=== PATIENT | male | born 1945 | race Caucasian/White ===

== ENCOUNTER → 2016-11-02 | Outpatient (CLI) | payer MEDICARE, OTHER ==
--- NOTE | 2016-11-02 11:54 | US ---
EXAMINATION TYPE: US venous doppler duplex LE LT DATE OF EXAM: 11/02/2016 11:49 AM COMPARISON: NONE CLINICAL HISTORY: R22.41 Localized Superficial Swelling. SIDE PERFORMED: Left TECHNIQUE: The lower extremity deep venous system is examined utilizing real time linear array sonog warren with graded compression, doppler sonography and color-flow sonography. VESSELS IMAGED: External Iliac Vein (EIV) Common Femoral Vein Deep Femoral Vein Greater Saphenous Vein * Femoral Vein Popliteal Vein Small Saphenous Vein * Proximal Calf Veins (* superficial vessels) Left Leg: Negative for DVT IMPRESSION: 1. Left lower extremity negative for deep venous thrombosis by ultrasound
--- NOTE | 2016-11-02 14:13 | XR ---
Left knee HISTORY: Pain, erythema, swelling 3 views of the left knee Bone mineralization, joint spaces and alignment are remarkable for some mild joint space in the media l compartment, patellofemoral joint with marginal spurring. Soft tissue swelling extensive. There is thickening of the patellar tendon region. No definite joint effusion. IMPRESSION: Correlate for cellulitis, infection of patellar tendon. A Yellow message has been communicated to Jay Jay Benito III, MD via the GREE system on 11/02/2016 2:10 PM, Message ID [id number].
== END | disposition home or self-care (01) ==
LOC: RADUSWWP 11:08
PROVIDERS: ATTEND Family Medicine
DX: L03.116 Cellulitis of left lower limb (principal); M65.162 Other infective (teno)synovitis, left knee; S89.92XA Unspecified injury of left lower leg, initial encounter

== ENCOUNTER 2018-02-19 17:03 | Emergency (ER) | payer OTHER, MEDICARE ==
[2018-02-19] MEDS ORDERED: SODIUM CHLORIDE 0.9% 500 ML 500 ML IV STA (17:25)
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
[2018-02-19 18:36] LABS: Partial Thromboplastin Time 23.9 sec (22.0-30.0); Prothrombin Time 9.9 sec (9.0-12.0)
[2018-02-19 18:38] LABS: ALT 23 U/L (21-72); AST 42 U/L (17-59); Albumin 3.9 g/dL (3.5-5.0); Alcohol <10 mg/dL; Alkaline Phosphatase 76 U/L (38-126); Anion Gap 7 mmol/L; Basophils % (A) 1 %; Blood Urea Nitrogen 20 mg/dL (9-20); Calcium 9.2 mg/dL (8.4-10.2); Carbon Dioxide 26 mmol/L (22-30); Chloride 107 mmol/L (98-107); Eosinophils # (A) 0.3 k/uL (0-0.7); Eosinophils % (A) 4 %; Glucose 99 mg/dL (74-99); HCT 43.5 % (39.0-53.0); HGB 14.2 gm/dL (13.0-17.5); Lipase 130 U/L (23-300); Lymphocytes # (A) 0.8 k/uL (1.0-4.8); Lymphocytes % (A) 13 %; MCH 31.6 pg (25.0-35.0); MCHC 32.7 g/dL (31.0-37.0); MCV 96.7 fL (80.0-100.0); Mean Platelet Volume 6.9; Monocytes # (A) 0.6 k/uL (0-1.0); Monocytes % (A) 11 %; Neutrophils % (A) 69 %; Platelet Count 203 k/uL (150-450); Potassium 4.9 mmol/L (3.5-5.1); RDW 13.6 % (11.5-15.5); Sodium 140 mmol/L (137-145); Total Bilirubin 0.6 mg/dL (0.2-1.3); Total Protein 6.5 g/dL (6.3-8.2); WBC 5.7 k/uL (3.8-10.6)
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
[2018-02-19 19:34] LABS: Appearance,Urine Clear (Clear); Bilirubin,Urine Negative (Negative); Blood,Urine Negative (Negative); Color,Urine Light Yellow; Glucose,Urine (UA) Negative (Negative); Ketones,Urine Negative (Negative); Leukocyte Esterase,Urine Negative (Negative); Nitrite,Urine Negative (Negative); Protein,Urine Negative (Negative); Specific Gravity,Urine 1.012 (1.001-1.035); Urobilinogen,Urine <2.0 mg/dL (<2.0)
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
[2018-02-19 20:32] VITALS: BP 159/75; PULSE 68; RESP 17; TEMP 98.9
== END 2018-02-19 20:35 | disposition other institution (70) ==
LOC: EC 17:03
DX: R10.13 Epigastric pain (principal); G23.8 Other specified degenerative diseases of basal ganglia; N28.1 Cyst of kidney, acquired; M19.90 Unspecified osteoarthritis, unspecified site; Z91.030 Bee allergy status; V43.62XA Car passenger injured in collision with other type car in traffic accident, initial encounter
CPT/HCPCS: 36415; 70450; 71045; 71250; 72125; 72170; 74176; 80053; 80320; 81003; 83690; 84484; 85025; 85610; 85730; 86850; 86900; 86901; 96360; 99285

== ENCOUNTER → 2018-03-02 | Outpatient (CLI) | payer MEDICARE, OTHER ==
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
== END | disposition home or self-care (01) ==
LOC: SLEEP 10:49
PROVIDERS: ATTEND Internal Medicine
DX: G47.33 Obstructive sleep apnea (adult) (pediatric) (principal); G47.31 Primary central sleep apnea; S19.89XA Other specified injuries of other specified part of neck, initial encounter; M79.89 Other specified soft tissue disorders; E66.9 Obesity, unspecified; K21.9 Gastro-esophageal reflux disease without esophagitis; E61.1 Iron deficiency; E78.5 Hyperlipidemia, unspecified; Z99.89 Dependence on other enabling machines and devices; Z79.899 Other long term (current) drug therapy; Z79.82 Long term (current) use of aspirin; Z87.828 Personal history of other (healed) physical injury and trauma; Z90.5 Acquired absence of kidney; Z52.4 Kidney donor; Z68.34 Body mass index [BMI] 34.0-34.9, adult

== ENCOUNTER → 2018-04-19 | Outpatient (CLI) | payer MEDICARE, OTHER ==
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
== END | disposition home or self-care (01) ==
LOC: SLEEP 11:22
PROVIDERS: ATTEND Internal Medicine
DX: G47.33 Obstructive sleep apnea (adult) (pediatric) (principal); G47.31 Primary central sleep apnea; E66.9 Obesity, unspecified; E78.5 Hyperlipidemia, unspecified; K21.9 Gastro-esophageal reflux disease without esophagitis; Z87.39 Personal history of other diseases of the musculoskeletal system and connective tissue; Z52.4 Kidney donor; Z99.11 Dependence on respirator [ventilator] status; Z79.899 Other long term (current) drug therapy

== ENCOUNTER → 2018-06-01 | Outpatient (CLI) | payer MEDICARE, OTHER ==
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
== END ==
LOC: SLEEP 14:56
PROVIDERS: ATTEND Internal Medicine
DX: Z53.9 Procedure and treatment not carried out, unspecified reason (principal)

== ENCOUNTER 2021-04-12 15:30 | Inpatient (IN) | payer MEDICARE, OTHER ==
--- NOTE | 2021-04-12 16:07 | ED ---
General Adult HPI - General Chief complaint: Fall Stated complaint: fall, hip injury Time Seen by Provider: 04/12/21 15:58 Source: patient, EMS, RN notes reviewed, old records reviewed Mode of arrival: EMS Limitations: no limitations - History of Present Illness Initial comments: 75-year-old well-appearing male down and presents to the emergency room via EMS with complaints of slipping in the driveway on ice landing on his right hip. Patient states he had sharp stabbing pain and is unable to the right leg. He denies any other injuries. He denies any head injury or loss of consciousness. He does have a history of hypertension. He states the pain was 8 out of 10 over pain medication was given by EMS and states the pain is resolved. -: hour(s) (2) Location: right, lower extremity (hip) Severity scale (1-10): 0 Quality: sharp Consistency: now resolved (after pain meds) Improves with: immobilization Worsens with: movement Associated Symptoms: denies other symptoms Treatments Prior to Arrival: other (iv pain meds) - Related Data Allergies Allergy/AdvReac Type Severity Reaction Status Date / Time bee venom protein (honey bee) Allergy Anaphylaxis Verified 04/12/21 15:48 Review of Systems ROS Statement: Those systems with pertinent positive or pertinent negative responses have been documented in the HPI. ROS Other: All systems not noted in ROS Statement are negative. Past Medical History Past Medical History: Hypertension History of Any Multi-Drug Resistant Organisms: None Reported Additional Past Surgical History / Comment(s): kidney donor - only one kidney Past Psychological History: Depression Smoking Status: Never smoker Past Alcohol Use History: Occasional Past Drug Use History: None Reported General Exam Limitations: no limitations General appearance: alert, in no apparent distress Head exam: Present: atraumatic, normocephalic, normal inspection Eye exam: Present: normal appearance, EOMI. Absent: scleral icterus, conjunctival injection, periorbital swelling, periorbital tenderness ENT exam: Present: normal exam, normal oropharynx, mucous membranes moist Neck exam: Present: normal inspection, full ROM. Absent: tenderness, meningismus, lymphadenopathy Respiratory exam: Present: normal lung sounds bilaterally. Absent: respiratory distress, wheezes, rales, rhonchi, stridor Cardiovascular Exam: Present: regular rate, normal rhythm, normal heart sounds. Absent: systolic murmur, diastolic murmur, rubs, gallop, clicks, JVD GI/Abdominal exam: Present: soft, normal bowel sounds. Absent: distended, tenderness, guarding, rebound, rigid Right Hip exam: Present: tenderness, shortening, pelvic stability. Absent: full ROM Upper Leg exam: Absent: tenderness Knee exam: Absent: tenderness Lower Leg exam: Absent: tenderness Ankle exam: Present: full ROM. Absent: tenderness Foot/Toe exam: Present: full ROM. Absent: tenderness Neurovascular tendon exam: Absent: no vascular compromise, pulse deficit, extremity cold to touch, foot drop Neurological exam: Present: alert, oriented X3 Psychiatric exam: Present: normal affect, normal mood Skin exam: Present: warm, dry, intact, normal color. Absent: rash, cyanosis, diaphoretic Course Vital Signs 04/12/21 15:39 Temperature 98.5 F Pulse Rate 67 Respiratory 18 Rate Blood Pressure 147/68 O2 Sat by Pulse 96 Oximetry Medical Decision Making - Medical Decision Making 75-year-old male alert and oriented 4, presents to the emergency room after slip and fall in his driveway landing on his right hip today. Patient states t hat he has difficulty with movement. No head injury. He did not lose consciousness. Labs are unremarkable. X-ray shows a acute intra-trochanteric fracture of the right femur. There is no dislocation noted. Pelvic ring is intact. No active cardiopulmonary disease on x-ray. Patient is neurovascularly intact. He has good sensation. Patient states he has no pain at this time, he was given pain m edication by EMS. Patient will be admitted to orthopedics for femur fracture. Case discussed with Dr. Howard - Lab Data Result diagrams: 04/12/21 16:09 04/12/21 16:09 Lab Results 04/12/21 04/12/21 04/12/21 Range/Units 16:09 16:09 16:09 WBC 5.8 (3.8-10.6) k/uL RBC 4.28 L (4.30-5.90) m/uL Hgb 13.8 (13.0-17.5) gm/dL Hct 41.4 (39.0-53.0) % MCV 96.7 (80.0-100.0) fL MCH 32.3 (25.0-35.0) pg MCHC 33.4 (31.0-37.0) g/dL RDW 13.2 (11.5-15.5) % Plt Count 184 (150-450) k/uL MPV 7.0 Neutrophils % 74 % Lymphocytes % 12 % Monocytes % 7 % Eosinophils % 4 % Basophils % 1 % Neutrophils # 4.3 (1.3-7.7) k/uL Lymphocytes # 0.7 L (1.0-4.8) k/uL Monocytes # 0.4 (0-1.0) k/uL Eosinophils # 0.3 (0-0.7) k/uL Basophils # 0.0 (0-0.2) k/uL PT 9.9 (9.0-12.0) sec INR 0.9 (<1.2) APTT 18.4 L (22.0-30.0) sec Sodium 138 (137-145) mmol/L Potassium 4.7 (3.5-5.1) mmol/L Chloride 109 H (98-107) mmol/L Carbon Dioxide 21 L (22-30) mmol/L Anion Gap 8 mmol/L BUN 24 H (9-20) mg/dL Creatinine 1.05 (0.66-1.25) mg/dL Est GFR (CKD-EPI)AfAm 80 (>60 ml/min/1.73 sqM) Est GFR (CKD-EPI)NonAf 70 (>60 ml/min/1.73 sqM) Glucose 101 H (74-99) mg/dL Calcium 8.7 (8.4-10.2) mg/dL Total Bilirubin 0.7 (0.2-1.3) mg/dL AST 34 (17-59) U/L ALT 14 (4-49) U/L Alkaline Phosphatase 90 (38-126) U/L Total Protein 6.4 (6.3-8.2) g/dL Albumin 3.7 (3.5-5.0) g/dL Disposition Clinical Impression: Fall, Fracture of right hip Disposition: ADMITTED IP TO THIS HOSP Is patient prescribed a controlled substance at d/c from ED?: No Referrals: Jay Jay Benito III, MD [Primary Care Provider] - 1-2 days Decision Date: 04/12/21 Decision Time: 17:01
[2021-04-12 16:18] LABS: Basophils % (A) 1 %; Eosinophils # (A) 0.3 k/uL (0-0.7); Eosinophils % (A) 4 %; HCT 41.4 % (39.0-53.0); HGB 13.8 gm/dL (13.0-17.5); Lymphocytes # (A) 0.7 k/uL (1.0-4.8); Lymphocytes % (A) 12 %; MCH 32.3 pg (25.0-35.0); MCHC 33.4 g/dL (31.0-37.0); MCV 96.7 fL (80.0-100.0); Monocytes # (A) 0.4 k/uL (0-1.0); Monocytes % (A) 7 %; Neutrophils # (A) 4.3 k/uL (1.3-7.7); Neutrophils % (A) 74 %; Platelet Count 184 k/uL (150-450); RBC 4.28 m/uL (4.30-5.90); RDW 13.2 % (11.5-15.5); WBC 5.8 k/uL (3.8-10.6)
[2021-04-12 16:36] LABS: INR 0.9 (<1.2); Prothrombin Time 9.9 sec (9.0-12.0)
[2021-04-12 16:38] LABS: Albumin 3.7 g/dL (3.5-5.0); Calcium 8.7 mg/dL (8.4-10.2); Potassium 4.7 mmol/L (3.5-5.1); Total Bilirubin 0.7 mg/dL (0.2-1.3); Total Protein 6.4 g/dL (6.3-8.2)
--- NOTE | 2021-04-12 16:40 | XR ---
EXAMINATION TYPE: XR chest 2V DATE OF EXAM: 04/12/2021 COMPARISON: 02/19/2018 HISTORY: Fall. Pain. TECHNIQUE: 2 views FINDINGS: There is no heart failure nor confluent pneumonic infiltrate. Costophrenic angles are clear . There are no hilar masses. Bony thorax is intact. IMPRESSION: No active cardiopulmonary disease. No adverse change.
[2021-04-12 16:42] LABS: Partial Thromboplastin Time 18.4 sec (22.0-30.0)
--- NOTE | 2021-04-12 16:42 | XR ---
EXAMINATION TYPE: XR Hip RT and AP Pelvis DATE OF EXAM: 04/12/2021 COMPARISON: NONE HISTORY: Fall. Pain TECHNIQUE: 3 views FINDINGS: There is acute intertrochanteric fracture of the right femur. There is no dislocation. Ther e is no significant displacement. Pelvic ring is intact. Hip joint spaces are fairly normal. Sacroili ac joints are intact. IMPRESSION: Acute intertrochanteric fracture right femur.
[2021-04-12] MEDS ORDERED: NALOXONE 0.4 MG/ML 1 ML VIAL IV PRN ×2 (16:57→17:03)
[2021-04-12] MEDS: HYDROmorphone 0.5 MG/0.5 ML SYRINGE IVP PRN ×2 (17:48→21:53)
[2021-04-12] MEDS: SODIUM CHLORIDE 0.9% 1,000 ML IV SCH (17:50)
[2021-04-13] MEDS: HYDROmorphone 0.5 MG/0.5 ML SYRINGE IVP PRN ×2 (00:47→08:44)
[2021-04-13] MEDS: SODIUM CHLORIDE 0.9% 1,000 ML IV SCH ×2 (07:03→20:48)
--- NOTE | 2021-04-13 07:14 | P.HPOR ---
History of Present Illness H&P Date: 04/13/21 Chief Complaint: Displaced right 4 part intertrochanteric femur fracture The patient's a 75-year-old male who presents after falling yesterday slipping on the ice outside his house injuring his right hip. He was unable to bear weight after the injury. Normally ambulates without any assistive devices. He denies loss of consciousness. Review of Systems All systems: negative (As per HPI) Past Medical History Past Medical History: Hypertension History of Any Multi-Drug Resistant Organisms: None Reported Additional Past Surgical History / Comment(s): kidney donor - only one kidney Past Psychological History: Depression Smoking Status: Never smoker Past Alcohol Use History: Occasional Past Drug Use History: None Reported Medications and Allergies Home Medications Medication Instructions Recorded Confirmed Type Aspirin EC [Ecotrin Low Dose] 81 mg PO HS 04/12/21 04/12/21 History Cbd Oil 1200mg 2 - 3 drops SL HS 04/12/21 04/12/21 History EPINEPHrine (Auto Inject) [Epipen] 0.3 mg IM ONCE PRN 04/12/21 04/12/21 History Escitalopram [Lexapro] 20 mg PO DAILY 04/12/21 04/12/21 History Esomeprazole Magnesium [NexIUM] 40 mg PO DAILY 04/12/21 04/12/21 History Ferrous Sulfate [Feosol] 325 mg PO DAILY 04/12/21 04/12/21 History Meloxicam [Mobic] 15 mg PO DAILY 04/12/21 04/12/21 History Multivitamins, Thera [Multivitamin 1 tab PO DAILY 04/12/21 04/12/21 History (formulary)] Simvastatin [Zocor] 20 mg PO HS 04/12/21 04/12/21 History amLODIPine [Norvasc] 5 mg PO DAILY 04/12/21 04/12/21 History cycloSPORINE 0.05% OPHTH SOLN 1 drop BOTH EYES BID 04/12/21 04/12/21 History [Restasis] Allergies Allergy/AdvReac Type Severity Reaction Status Date / Time bee venom protein (honey bee) Allergy Anaphylaxis Verified 04/12/21 18:00 Physical Examination - Hip right Gait: other (Nonweightbearing) Tenderness with palpation: anterior Pain with motion: other (Pain with logroll right hip, shortening and external rotation right lower extremity) Strength: extension: 4/5 Strength: flexion: 4/5 Results No acute distress Nontender cervical, thoracic, and lumbar spine No point tenderness but the upper extremities Pelvis stable to external rotation stress Pain with any attempted range of motion right hip Shortening and external rotation right lower extremity Distal neurovascular exam intact right lower extremity - Labs Labs: Abnormal Lab Results - Last 24 Hours (Table) 04/12/21 04/12/21 04/12/21 Range/Units 16:09 16:09 16:09 RBC 4.28 L (4.30-5.90) m/uL Lymphocytes # 0.7 L (1.0-4.8) k/uL APTT 18.4 L (22.0-30.0) sec Chloride 109 H (98-107) mmol/L Carbon Dioxide 21 L (22-30) mmol/L BUN 24 H (9-20) mg/dL Glucose 101 H (74-99) mg/dL H & H 04/12/21 Range/Units 16:09 Hgb 13.8 (13.0-17.5) gm/dL Hct 41.4 (39.0-53.0) % Coagulation 04/12/21 Range/Units 16:09 INR 0.9 (<1.2) Result Diagrams: 04/12/21 16:09 04/12/21 16:09 - Diagnostic results Hip x-ray: image reviewed (Displaced four-part right intertrochanteric femur fracture with mild subtrochanteric extension) Assessment and Plan Assessment: Displaced right 4 part intertrochanteric femur fracture Plan: I talked with the patient regarding his condition along with treatment options recommended proceeding with surgical intervention. We'll plan to proceed with trochanteric intramedullary nailing of the right intertrochanteric femur fractur e this evening. We'll institute DVT prophylaxis postoperatively. Risks and benefits were discussed at length in layman's terms. Time with Patient: Greater than 30
[2021-04-13] MEDS ORDERED: TEMAZEPAM 15 MG CAP PO PRN (13:59)
--- NOTE | 2021-04-13 15:12 | CONS ---
CONSULTATION DATE OF SERVICE: 04/13/2021 REASON FOR CONSULTATION: Preoperative clearance and advice regarding hypertension, hyperlipidemia, requested by Dr. Boothe. HISTORY OF PRESENT ILLNESS: This 75-year-old gentleman with a past medical history of hypertension, hyperlipidemia, history of DJD, sleep apnea, being followed by Dr. Benito in the outpatient setting, suffered a fall and was admitted with right intertrochanteric femur fracture. Dr. Boothe is planning trochanteric intramedullary nailing today. No chest pain. No palpitations. No headache, loss of consciousness, seizures. The preoperative x- rays excellent. PAST MEDICAL HISTORY: History of hypertension, hyperlipidemia, history of GERD, history of disorder, history of DJD, sleep apnea. HOME MEDICATIONS: Zocor, Restasis, EpiPen, CBD oil, aspirin, Norvasc, multivitamins, iron sulfate, Lexapro, Mobic, Nexium. Doses are reviewed. ALLERGIES: BEE VENOM. FAMILY HISTORY: No history of heart disease or strokes in the family. SOCIAL HISTORY: No history of smoking. No history of alcohol intake. REVIEW OF SYSTEMS: ENT: No diminished hearing. No diminished vision. CARDIOVASCULAR SYSTEM: No angina, palpitations. RESPIRATORY SYSTEM: No cough, hemoptysis. GI: No nausea, vomiting, diarrhea. : No dysuria. NERVOUS SYSTEM: No numbness, weakness. ALLERGY/IMMUNOLOGY: No asthma or hay fever. MUSCULOSKELETAL: As mentioned earlier. HEMATOLOGY/ONCOLOGY: No history of anemia. ENDOCRINE: No history of diabetes or hypothyroidism. CONSTITUTIONAL: As mentioned earlier. DERMATOLOGY: Negative. RHEUMATOLOGY: Negative. PSYCHIATRY: As mentioned earlier. PHYSICAL EXAMINATION: Patient alert and oriented x3. Pulse 74, blood pressure 165/77, respiration 18, temperature 99.0, pulse ox on room air. HEENT: Conjunctivae normal. NECK: No jugular venous distention. CARDIOVASCULAR: S1, S2 muffled. RESPIRATION: Breath sounds diminished at the bases. No rhonchi. No crackles. ABDOMEN: Soft, nontender. No mass palpable. LEGS: Status post left hip fracture. NERVOUS SYSTEM: Higher functions as mentioned earlier. Moves all 4 limbs. No focal motor or sensory deficit. LYMPHATICS: No lymph node palpable in neck, axillae or groin. SKIN: No ulcer, rash, bleeding. JOINTS: No active deforming arthropathy. LABS: WBC 4.8, hemoglobin 13.8. APTT 18.1. Sodium , potassium 4.7. Other labs are noted. ASSESSMENT: 1. Status post left intertrochanteric femur fracture. 2. History of gastroesophageal reflux disease. 3. Hypertension. 4. Hyperlipidemia. 5. History of degenerative joint disease. 6. History of sleep apnea. 7. History of nephrolithiasis. 8. Obstructive sleep apnea. 9. History of gout. 10.History of degenerative joint disease. 11.History of depression. 12.Obesity; body mass index of 33.9. 13.FULL CODE. RECOMMENDATIONS AND DISCUSSION: In this 75-year-old gentleman who presented with multiple complex medical issues, at this time I recommend continuing with current medications, continuing symptomatic treatment. The patient is cleared for surgery. The patient is medically stable. I would recommend resuming the home medications. DVT prophylaxis. Incentive spirometry. Proton pump inhibitors. Recommend following closely with primary physician in the outpatient setting. Thank you, Dr. Boothe, for letting us participate in the care of this patient. FAROOQL / IJN: [id number] / LISA
[2021-04-13] MEDS ORDERED: IV FLUID CONTINUATION 1,000 ML IV ONE (15:49)
[2021-04-13] MEDS ORDERED: ePHEDrine 50 MG/ML 1 ML AMP ONE (16:30)
[2021-04-13] MEDS ORDERED: PHENYLEPHRINE-0.9% NACL SYG 1,000 MCG/10 ML SYRINGE ONE (16:30)
[2021-04-13] MEDS ORDERED: PROPOFOL 10 MG/ML 20 ML VIAL IV ONE (16:30)
[2021-04-13] MEDS ORDERED: MIDAZOLAM 2 MG/2 ML VIAL ONE (16:30)
[2021-04-13] MEDS ORDERED: fentaNYL (PF) 50 MCG/ML 2 ML AMP ONE (16:30)
[2021-04-13] MEDS ORDERED: SODIUM CHLORIDE 0.9% 50 ML with ceFAZolin 2,000 MG IV ONE ×2 (16:33)
--- NOTE | 2021-04-13 18:26 | P.OP ---
Date of Procedure: 04/13/21 Preoperative Diagnosis: Displaced right 4 part intertrochanteric femur fracture Postoperative Diagnosis: Same Procedure(s) Performed: Trochanteric intramedullary nailing right 4 part intertrochanteric femur fracture Implants: Arthrex trochanteric nailES 11 mm x 42 cm, 115 mm compression screw, 10 mm end cap, 40 mm distal locking screw Anesthesia: regional Surgeon: Jaylan Boothe Journalism Professor #1: Yovani Martin Estimated Blood Loss (ml): 100 Pathology: none sent Condition: stable Disposition: PACU Indications for Procedure: The patient's a 75-year-old male who presents after falling injuring his right hip. Upon evaluation he is noted have a displaced right 4 part intertrochanteric femur fracture. A discussion of the risks and benefits of operative intervention was made with patient and his family. He opted to proceed. Operative risks to include infection, neurovascular injury, development of nonunion/malunion, possible hardware failure, possible need for subsequent procedures was discussed. Informed consent was obtained. Operative Findings: As below Description of Procedure: The patient was brought to the operating room, and after induction of spinal anesthesia was placed supine on the fracture table. The fracture was reduced with longitudinal traction and internal rotation of the right lower extremity. This is verified with fluoroscopy on the AP and lateral views. I was able to obtain normal anatomic reduction. The right lower extremity was prepped and draped in normal fashion. Bony prominences were appropriately padded. The 10 cm incision was then made just proximal to the greater trochanter. Skin was incised sharply. Subcutaneous tissues were divided sharply. Electrocautery was used for hemostasis. The gluteus kenton fascia was split in line with the skin incision. Blunt dissection was then utilized to palpate the greater trochanter. A starting awl was used to enter the medial tip of the greater trochanter at the junction of the anterior and middle one third. This was done with the aid of fluoroscopy. A ball-tipped guidewire was then inserted. The canal was reamed up to 12.5 mm. The proximal portion of the femur was reamed to 16.5 mm to the level of the lesser trochanter. An 11 mm x 42 mm trochanteric nail was gently inserted over the guidewire. This was inserted to the appropriate depth. The guidewire was then removed. A threaded guidepin was then placed into the centercentral portion of the femoral head and neck with the aid of fluoroscopy to within 5 mm of the articular surface. A triple reamer was used to a depth of 115 mm. A 115 mm compression screw was inserted with good purchase. The compression screw was then locked in the nail. The internal device was removed to allow for compression. Traction was removed. The distal locking screw was then inserted utilizing the alignment guide. A 4.5 mm x 40 mm cortical screw was inserted with good purchase. Final fluoroscopic views to include AP and lateral views of the hip and femur showed adequate reduction of the fracture and placement of the implant. I did place a 10 mm in The proximal portion of the nail. The wound was irrigated with normal saline. The fascia was closed with running 0 Vicryl suture. The subcu tissues reapproximated interrupted 2-0 Vicryl sutures. Skin was reapproximated with starr. A sterile dressing was applied. The patient was then awoken from sedation and transferred to recovery room in good condition. Blood loss was estimated at 100 mL. No complications were incurred. Sponge and needle counts were correct at the end the case. Yovani BANKS assisted during the major components the case to include positioning, exposure, implantation, and closure.
[2021-04-13] MEDS ORDERED: NALOXONE 0.4 MG/ML 1 ML VIAL IV PRN (18:29)
[2021-04-13] MEDS ORDERED: HYDROmorphone 0.5 MG/0.5 ML SYRINGE IVP PRN (18:29)
[2021-04-13] MEDS ORDERED: HYDROcodone/APAP 5-325MG 1 EACH TAB PO PRN (18:29)
--- NOTE | 2021-04-13 18:37 | XR ---
INDICATION PROVIDED: Intraoperative right femur ORIF. Comparison: Preoperative radiographs 04/12/2021. TECHNIQUE: 5 stored intraoperative fluoroscopic radiographs of the right hip in the AP and lateral pr ojections for surgical hardware localization were created. FINDINGS: Intraoperative fluoroscopic images of the right hip obtained during ORIF. Total fluoroscopic time is 85 seconds. IMPRESSION: Intraoperative right proximal femur ORIF. Please see operative report. Details.
[2021-04-13] MEDS: HYDROcodone/APAP 7.5-325MG 1 EACH TAB PO PRN (19:28)
[2021-04-13 19:33] LABS: Basophils % (A) 0 %; Eosinophils # (A) 0.3 k/uL (0-0.7); Eosinophils % (A) 3 %; HCT 37.6 % (39.0-53.0); HGB 12.4 gm/dL (13.0-17.5); Lymphocytes % (A) 12 %; MCH 32.9 pg (25.0-35.0); MCHC 33.1 g/dL (31.0-37.0); MCV 99.5 fL (80.0-100.0); Mean Platelet Volume 7.8; Monocytes # (A) 0.7 k/uL (0-1.0); Monocytes % (A) 8 %; Neutrophils # (A) 6.3 k/uL (1.3-7.7); Neutrophils % (A) 74 %; Platelet Count 132 k/uL (150-450); RBC 3.78 m/uL (4.30-5.90); RDW 13.9 % (11.5-15.5); WBC 8.4 k/uL (3.8-10.6)
[2021-04-13] MEDS: ENOXAPARIN 30 MG/0.3 ML SYRINGE SQ SCH (20:33)
[2021-04-13] MEDS: SENNOSIDES-DOCUSATE SODIUM 1 EACH TAB PO SCH (20:33)
[2021-04-13] MEDS: ATORVASTATIN 10 MG TAB PO SCH (20:34)
[2021-04-13] MEDS: cycloSPORINE 0.05% OPHTH 0.4 ML DROPERETTE BOTH EYES SCH (20:34)
[2021-04-14] MEDS: MULTIVITAMINS, THERA 1 EACH TAB PO SCH (08:28)
[2021-04-14] MEDS: amLODIPine 5 MG TAB PO SCH (08:28)
[2021-04-14] MEDS: PANTOPRAZOLE 40 MG TABLET PO SCH (08:29)
[2021-04-14] MEDS: ENOXAPARIN 30 MG/0.3 ML SYRINGE SQ SCH ×2 (08:29→20:26)
[2021-04-14] MEDS: HYDROcodone/APAP 7.5-325MG 1 EACH TAB PO PRN ×3 (08:45→23:22)
[2021-04-14] MEDS: cycloSPORINE 0.05% OPHTH 0.4 ML DROPERETTE BOTH EYES SCH ×2 (09:07→20:27)
[2021-04-14] MEDS: ESCITALOPRAM 20 MG TAB PO SCH (09:07)
--- NOTE | 2021-04-14 09:27 | FL ---
EXAMINATION TYPE: FL guidance operating room DATE OF EXAM: 04/13/2021 HISTORY: Fluoroscopy time 1 minute and 25 seconds of fluoroscopy provided. IMPRESSION: 1. Fluoroscopy time.
[2021-04-14] MEDS ORDERED: ACETAMINOPHEN TAB 325 MG TAB PO PRN (10:08)
--- NOTE | 2021-04-14 10:34 | P.PN ---
Subjective Progress Note Date: 04/14/21 Principal diagnosis: Status post intramedullary nail right intertrochanteric femur fracture Patient is evaluated today at bedside. He does note increase in pain when he moves the leg. He does have a catheter in place. Patient denies any headaches, lightheadedness, chest pain or shortness of breath. Objective - Vital Signs Vital signs: Vital Signs Temp 99.8 F H 04/14/21 07:58 Pulse 94 04/14/21 07:58 Resp 18 04/14/21 07:58 BP 116/62 04/14/21 07:58 Pulse Ox 91 L 04/14/21 07:58 Intake & Output 04/13/21 04/14/21 04/14/21 18:59 06:59 18:59 Intake Total 1200 900 Output Total 500 500 Balance 700 400 Weight 113.398 kg Intake: IV 1200 Intake, IV Titration 900 Amount Sodium Chloride 0.9% 1, 900 000 ml @ 75 mls/hr IV . [id number] [facility] Rx#:[id number] Output: Urine 400 500 Estimated Blood Loss 100 Other: Voiding Method Indwelling Catheter Indwelling Catheter - Exam Right lower extremity: Incision is clean, dry, and intact. Postop bandage is in good position and c ondition. There is minimal soft tissue swelling and ecchymosis surrounding the medial and lateral aspects of the incision. Calf is soft, no tenderness with palpation. Plantar flexion, dorsiflexion, EHL, FHL are intact. Sensory exam to light touch throughout the extremity is intact, dorsal pedis pulses 2+. - Labs CBC & Chem 7: 04/13/21 19:19 04/12/21 16:09 Labs: Abnormal Lab Results - Last 24 Hours (Table) 04/13/21 Range/Units 19:19 RBC 3.78 L (4.30-5.90) m/uL Hgb 12.4 L (13.0-17.5) gm/dL Hct 37.6 L (39.0-53.0) % Plt Count 132 L (150-450) k/uL Assessment and Plan Assessment: Post operative day #1 s/p IM nail right IT fracture Plan: Pain control, continue use of oral medication. IV pain medication for breakthrough Wound care: Plan for dressing change on 04/15/2021 GI and DVT prophylaxis, continue subcu medication Weight-bear as tolerated, utilize walker all times PT/OT evaluation Ice and elevate lower extremity often Medical recommendations Discharge planning: Discussed with patient today the possibility of discharge to home with home healthcare versus subacute rehab, we'll continue to assess Time with Patient: Less than 30
--- NOTE | 2021-04-14 10:48 | XR ---
EXAMINATION TYPE: XR chest 1V portable DATE OF EXAM: 04/14/2021 CLINICAL HISTORY: Difficulty breathing progress study. TECHNIQUE: Single AP portable upright view of the chest is obtained. COMPARISON: Chest x-ray from 2 days earlier FINDINGS: Some chronic parenchymal changes bilaterally without suspicious focal airspace opacity, pl eural effusion, or pneumothorax seen. Cardiac silhouette size stable and mildly enlarged with atheros clerotic thoracic aorta. Osseous structures are demineralized with underlying scoliotic curvature. IMPRESSION: Mild cardiomegaly and chronic parenchymal changes without acute pulmonary process.
[2021-04-14 12:12] LABS: Basophils % (A) 0 %; Eosinophils # (A) 0.3 k/uL (0-0.7); Eosinophils % (A) 4 %; HCT 32.7 % (39.0-53.0); HGB 10.8 gm/dL (13.0-17.5); Lymphocytes # (A) 0.7 k/uL (1.0-4.8); Lymphocytes % (A) 10 %; MCH 32.6 pg (25.0-35.0); MCHC 33.1 g/dL (31.0-37.0); MCV 98.7 fL (80.0-100.0); Mean Platelet Volume 7.2; Monocytes # (A) 0.6 k/uL (0-1.0); Monocytes % (A) 9 %; Neutrophils % (A) 74 %; Platelet Count 148 k/uL (150-450); RBC 3.31 m/uL (4.30-5.90); WBC 6.8 k/uL (3.8-10.6)
[2021-04-14 12:27] LABS: Calcium 8.4 mg/dL (8.4-10.2); Potassium 4.4 mmol/L (3.5-5.1)
[2021-04-14] MEDS: TAMSULOSIN 0.4 MG CAP.ER.24H PO SCH (13:24)
--- NOTE | 2021-04-14 15:14 | PN ---
PROGRESS NOTE DATE OF SERVICE: 04/14/2021 This 76-year-old gentleman who was admitted after surgery had urinary retention. No chest pain. No palpitations. No fever. The most recent chest x-ray, which was reviewed personally by me, showed some prominent right hilum with no acute pulmonary processes reported. No chest pain. No palpitations. No fever. PHYSICAL EXAMINATION: Alert and oriented x3. Pulse 86, blood pressure 118/60, respiration 18, temperature 98.2, pulse ox 94% on room air. HEENT: Conjunctivae normal. NECK: No jugular venous distention. CARDIOVASCULAR: S1, S2 muffled. RESPIRATION: Breath sounds diminished at the bases. A few scattered rhonchi. ABDOMEN: Soft, nontender. LEGS: Status post surgery. NERVOUS SYSTEM: No focal deficit. LABS: WBC 6.3, hemoglobin 10.9. ASSESSMENT: 1. Status post left intertrochanteric femur fracture, status post trochanteric intramedullary nailing, right. 2. History of gastroesophageal reflux disease. 3. Urinary retention. 4. Hypertension. 5. Hyperlipidemia. 6. History of degenerative joint disease. 7. History of sleep apnea. 8. History of nephrolithiasis. 9. History of obstructive sleep apnea. 10.History of gout. 11.History of degenerative joint disease. 12.History of depression. 13.Obesity with body mass index of 33.9. 14.FULL CODE. RECOMMENDATIONS AND DISCUSSION: I recommend to continue current medications, continue with the monitoring, symptomatic treatment. Incentive spirometry. DVT prophylaxis. Closely follow with Orthopedic Surgery. Guarded prognosis. Further recommendations to follow. Patient is on Lovenox twice daily. We will continue to monitor. MMODL / IJN: [id number] /
[2021-04-14] MEDS: SODIUM CHLORIDE 0.9% 1,000 ML IV SCH ×2 (15:59→23:23)
[2021-04-14] MEDS: SENNOSIDES-DOCUSATE SODIUM 1 EACH TAB PO SCH (20:26)
[2021-04-14] MEDS: ATORVASTATIN 10 MG TAB PO SCH (20:27)
[2021-04-15] MEDS: HYDROcodone/APAP 7.5-325MG 1 EACH TAB PO PRN ×2 (05:52→21:38)
[2021-04-15] MEDS: ENOXAPARIN 30 MG/0.3 ML SYRINGE SQ SCH ×2 (08:23→20:18)
[2021-04-15] MEDS: TAMSULOSIN 0.4 MG CAP.ER.24H PO SCH (08:23)
[2021-04-15] MEDS: MULTIVITAMINS, THERA 1 EACH TAB PO SCH (08:23)
[2021-04-15] MEDS: PANTOPRAZOLE 40 MG TABLET PO SCH ×2 (08:24→16:36)
[2021-04-15] MEDS: cycloSPORINE 0.05% OPHTH 0.4 ML DROPERETTE BOTH EYES SCH ×2 (08:24→20:18)
[2021-04-15] MEDS: ESCITALOPRAM 20 MG TAB PO SCH (08:24)
[2021-04-15] MEDS: amLODIPine 5 MG TAB PO SCH (08:24)
--- NOTE | 2021-04-15 09:23 | P.PN ---
Subjective Progress Note Date: 04/15/21 Principal diagnosis: Status post intramedullary nail right intertrochanteric femur fracture Patient is evaluated today at bedside. Patient is resting in his hospital bed. The urinary catheter was removed early this morning. Patient has been up out of bed at this time. He does have generalized discomfort to the right lower extremity with movement. Patient denies any headaches, lightheadedness, chest pain or shortness of breath. Objective - Vital Signs Vital signs: Vital Signs Temp 98.1 F 04/15/21 04:38 Pulse 75 04/15/21 04:38 Resp 18 04/15/21 04:38 BP 120/66 04/15/21 04:38 Pulse Ox 94 L 04/15/21 04:38 Intake & Output 04/14/21 04/15/21 04/15/21 18:59 06:59 18:59 Intake Total 160 100 Output Total 1400 650 Balance -1240 -550 Intake: Oral 160 100 Output: Urine 1400 650 Uretheral (Thayer) 600 Other: Voiding Method Indwelling Catheter Indwelling Catheter - Exam Right lower extremity: Incision is clean, dry, and intact. Dressing was changed today bedside, starr are in good position and condition. There is minimal soft tissue swelling and ecchymosis surrounding the medial and lateral aspects of the incision. Calf is soft, no tenderness with palpation. Plantar flexion, dorsiflexion, EHL, FHL are intact. Sensory exam to light touch throughout the extremity is intact, dorsal pedis pulses 2+. - Labs CBC & Chem 7: 04/14/21 11:40 04/14/21 11:40 Labs: Abnormal Lab Results - Last 24 Hours (Table) 04/14/21 04/14/21 Range/Units 11:40 11:40 RBC 3.31 L (4.30-5.90) m/uL Hgb 10.8 L (13.0-17.5) gm/dL Hct 32.7 L (39.0-53.0) % Plt Count 148 L (150-450) k/uL Lymphocytes # 0.7 L (1.0-4.8) k/uL Chloride 109 H (98-107) mmol/L BUN 26 H (9-20) mg/dL Glucose 120 H (74-99) mg/dL Assessment and Plan Assessment: Post operative day #2 s/p IM nail right IT fracture Acute blood loss anemia, expected surgical outcome Plan: Pain control, continue use of oral medication. IV pain medication for b reakthrough Wound care: Will apply optifoam prior to discharge GI and DVT prophylaxis, continue subcu medication Weight-bear as tolerated, utilize walker all times PT/OT evaluation Ice and elevate lower extremity often Medical recommendations Discharge planning: Depending on how patient does with physical therapy today, we will discuss with case management discharge options Time with Patient: Less than 30
[2021-04-15] MEDS: SODIUM CHLORIDE 0.9% 1,000 ML IV SCH (12:23)
[2021-04-15] MEDS: FERROUS SULFATE 325 MG TAB PO SCH (16:36)
--- NOTE | 2021-04-15 17:27 | PN ---
PROGRESS NOTE DATE OF SERVICE: 04/15/2021 This 76-year-old gentleman was admitted after left intertrochanteric fracture and surgery, is being closely monitored. No chest pain. No palpitations. No fever. The patient is running a mild fever. PHYSICAL EXAMINATION: Alert and oriented x3. Pulse is 84m blood pressure 140/70, respiration 18, temperature 100.2, pulse ox 91% on room air. HEENT: Conjunctivae normal. Oral mucosa moist. NECK: No jugular venous distention. No lymph node enlargement. CARDIOVASCULAR: S1, S2, muffled. No S3, no S4, RESPIRATORY: Diminished breath sounds at the bases. A few scattered rhonchi. ABDOMEN: Soft, nontender. LEGS: No edema, no swelling. NERVOUS SYSTEM: No focal deficits. LABS: WBC 6.2, hemoglobin 10.2, sodium 130, potassium 4.4. ASSESSMENT: 1. Status post left intertrochanteric femur fracture status post trochanteric intramedullary nailing, right. 2. Fever. 3. History of GERD. 4. Urinary retention. 5. Hypertension. 6. Hyperlipidemia. 7. History of DJD. 8. History of sleep apnea. 9. History of nephrolithiasis. 10.History of gout. 11.History of depression. 12.Obesity with body mass index of 33.8. 13.FULL CODE. RECOMMENDATIONS AND DISCUSSION: I recommend to continue current management and symptomatic treatment. Currently, UA is not available. We will recommend UA with micro and cultures as well. A chest x-ray was done yesterday which I reviewed personally, showed some prominent right hilum. Otherwise, no other abnormalities. I will repeat labs and we will continue to monitor as mentioned earlier. UA with micro ordered. Incentive spirometry. DVT prophylaxis. Closely follow. Further recommendations to follow. MMODL / IJN: [id number] /
[2021-04-15 17:52] LABS: Appearance,Urine Clear (Clear); Bilirubin,Urine Negative (Negative); Blood,Urine Large (Negative); Color,Urine Yellow; Glucose,Urine (UA) Negative (Negative); Ketones,Urine 3+ (Negative); Leukocyte Esterase,Urine Small (Negative); Mucus,Urine Occasional /hpf; Nitrite,Urine Negative (Negative); PH, Urine 5.5 (5.0-8.0); Protein,Urine 1+ (Negative); RBC,Urine 180 /hpf (0-5); Specific Gravity,Urine 1.023 (1.001-1.035); Squamous Epithelial Cell,Urine <1 /hpf (0-4); Urobilinogen,Urine <2.0 mg/dL (<2.0); WBC,Urine 14 /hpf (0-5)
[2021-04-15 18:57] LABS: Basophils % (A) 0 %; Eosinophils # (A) 0.3 k/uL (0-0.7); Eosinophils % (A) 5 %; HCT 31.7 % (39.0-53.0); HGB 10.5 gm/dL (13.0-17.5); Lymphocytes # (A) 0.6 k/uL (1.0-4.8); Lymphocytes % (A) 10 %; MCH 32.8 pg (25.0-35.0); MCHC 33.1 g/dL (31.0-37.0); MCV 99.2 fL (80.0-100.0); Mean Platelet Volume 7.4; Monocytes # (A) 0.4 k/uL (0-1.0); Monocytes % (A) 7 %; Neutrophils # (A) 4.6 k/uL (1.3-7.7); Neutrophils % (A) 75 %; Platelet Count 164 k/uL (150-450); RDW 13.6 % (11.5-15.5); WBC 6.2 k/uL (3.8-10.6)
[2021-04-15] MEDS: SENNOSIDES-DOCUSATE SODIUM 1 EACH TAB PO SCH (20:18)
[2021-04-15] MEDS: ATORVASTATIN 10 MG TAB PO SCH (20:18)
[2021-04-16] MEDS: SODIUM CHLORIDE 0.9% 1,000 ML IV SCH ×2 (02:18→14:02)
[2021-04-16 08:17] LABS: Basophils % (A) 0 %; Eosinophils # (A) 0.4 k/uL (0-0.7); Eosinophils % (A) 7 %; HCT 31.2 % (39.0-53.0); HGB 10.2 gm/dL (13.0-17.5); Lymphocytes # (A) 0.7 k/uL (1.0-4.8); Lymphocytes % (A) 13 %; MCH 32.8 pg (25.0-35.0); MCHC 32.8 g/dL (31.0-37.0); MCV 100.2 fL (80.0-100.0); Macrocytosis Slight; Mean Platelet Volume 7.3; Monocytes # (A) 0.5 k/uL (0-1.0); Monocytes % (A) 8 %; Neutrophils # (A) 3.7 k/uL (1.3-7.7); Neutrophils % (A) 69 %; Platelet Count 190 k/uL (150-450); RBC 3.12 m/uL (4.30-5.90); WBC 5.4 k/uL (3.8-10.6)
[2021-04-16 08:35] LABS: Albumin 2.8 g/dL (3.5-5.0); Calcium 8.7 mg/dL (8.4-10.2); Potassium 3.7 mmol/L (3.5-5.1); Total Bilirubin 1.2 mg/dL (0.2-1.3); Total Protein 5.4 g/dL (6.3-8.2)
[2021-04-16 08:38] VITALS: BP 159/71; PULSE 98; RESP 16; TEMP 97.7
[2021-04-16] MEDS: PANTOPRAZOLE 40 MG TABLET PO SCH (09:38)
[2021-04-16] MEDS: ENOXAPARIN 30 MG/0.3 ML SYRINGE SQ SCH (09:38)
[2021-04-16] MEDS: MULTIVITAMINS, THERA 1 EACH TAB PO SCH (09:38)
[2021-04-16] MEDS: cycloSPORINE 0.05% OPHTH 0.4 ML DROPERETTE BOTH EYES SCH (09:39)
[2021-04-16] MEDS: FERROUS SULFATE 325 MG TAB PO SCH (09:39)
[2021-04-16] MEDS: amLODIPine 5 MG TAB PO SCH (09:39)
[2021-04-16] MEDS: ESCITALOPRAM 20 MG TAB PO SCH (09:39)
[2021-04-16] MEDS: TAMSULOSIN 0.4 MG CAP.ER.24H PO SCH (09:39)
[2021-04-16] MEDS: HYDROcodone/APAP 7.5-325MG 1 EACH TAB PO PRN (10:18)
--- NOTE | 2021-04-16 11:18 | P.DS ---
Providers Date of admission: 04/12/21 17:03 Expected date of discharge: 04/16/21 Attending physician: Jaylan Boothe Consults: 04/12/21 16:58 Consult Physician Routine Consulting Provider: Richard Robb Consult Reason/Comments: right femur fracture medical clearance Do you want consulting provider notified?: Yes Primary care physician: [facility] Course: Date of admission: 04/12/2021 Date of discharge: 04/16/2021 Admission diagnosis: Displaced right intertrochanteric femur fracture Discharge diagnosis: Status post IM nail right intertrochanteric femur fracture Attending physician: Dr. Boothe Surgical procedures: Intramedullary nailing of right intertrochanteric femur fracture Brief history: Patient is a 76-year-old male who was evaluated at [facility] on 04/12/2021 after falling and injuring his right lower extremity. It was determined that the patient had a intertrochanteric femur fracture, he was admitted under the orthopedic group with plan for surgical intervention. Proper consults were placed for medical management. Hospital course: Details of patient's surgery can be found in operative report. Patient tolerated the procedure well and was subsequently transported to orthopedic floor. Patient's orthopeidc and medical care was provided daily. Patient had daily laboratory tests performed for evaluation of overall blood counts. Patient had daily physical therapy to include strengthening range of motion as well as education with walker ambulation. Patient was treated with Lovenox for their postoperative DVT prophylaxis during their inpatient stay. Patient was noted to have a relatively uneventful postoperative course. Patient reported satisfactory pain control with oral pain medications by postoperative day 1. Patient showed satisfactory progress with physical therapy. Patient moved steadily through the program and had no difficulty meeting the goals by postoperative day 3. Given patient's otherwise satisfactory course and having met physical therapy goals, plan is to discharge patient rehab on postoperative day 3. Discharge condition/disposition: Patient will be discharged to rehab in stable condition. Discharge medications: Instructions are given on resumption of patient's normal daily medications per primary care recommendation, in addition patient will be prescribed [place] 7.5 mg/325 mg, Colace 100 mg, MiraLAX 17 g, ferrous sulfate 325 mg, heparin 5000 units. Discharge instructions: 1. Wound care and infection precautions, keep incision dry and covered while showering, no lotions, creams, moisturizers. No soaking, tubs, pools, hottubs. Do not scrub over the incision. 2. Weight-bear as tolerated with walker / cane until follow-up. 3. Ice and elevate when necessary. Do not exceed 20 minutes per hour with ice pack. 4. Utilize compression sleeve until seen at first follow up appointment. 5. Visiting nursing care. 6. Home physical therapy 7. Pain meds and anticoagulants per prescription. 8. Pain medication has potential to cause constipation. Increase oral fluid and fiber intake. Contact primary care provider if you have not had a bowel movement within 48 hours after discharge 9. No anti-inflammatory medication until discussed at first post operative visit, this including Motrin, Aleve, Mobic, Diclofenac 10. Follow up in office at 2 weeks postop with Kyler Bernardo PA-C/Yovani Willson 11. Follow up with your primary care doctor 7-10 days after discharge. 12. Contact [facility] with any questions, . Procedures: Intramedullary right intertrochanteric femur fracture Patient Condition at Discharge: Good Plan - Discharge Summary Discharge Rx Participant: No New Discharge Prescriptions: New Heparin Sodium,Porcine [Heparin Sodium] 5,000 unit SQ Q12HR #50 each HYDROcodone/APAP 7.5-325MG [[place] 7.5] 1 each PO Q6HR PRN #28 tab PRN Reason: Pain Docusate [Colace] 100 mg PO DAILY #30 capsule polyethylene glycoL 3350 [Miralax] 17 gm PO DAILY PRN #30 packet PRN Reason: Constipation Discontinued Ferrous Sulfate [Feosol] 325 mg PO DAILY No Action amLODIPine [Norvasc] 5 mg PO DAILY Simvastatin [Zocor] 20 mg PO HS Multivitamins, Thera [Multivitamin (formulary)] 1 tab PO DAILY Escitalopram [Lexapro] 20 mg PO DAILY Aspirin EC [Ecotrin Low Dose] 81 mg PO HS Cbd Oil 1200mg 2 - 3 drops SL HS cycloSPORINE 0.05% OPHTH SOLN [Restasis] 1 drop BOTH EYES BID Meloxicam [Mobic] 15 mg PO DAILY Esomeprazole Magnesium [NexIUM] 40 mg PO DAILY EPINEPHrine (Auto Inject) [Epipen] 0.3 mg IM ONCE PRN PRN Reason: Anaphylaxis Discharge Medication List Aspirin EC [Ecotrin Low Dose] 81 mg PO HS 04/12/21 [History] Cbd Oil 1200mg 2 - 3 drops SL HS 04/12/21 [History] EPINEPHrine (Auto Inject) [Epipen] 0.3 mg IM ONCE PRN 04/12/21 [History] Escitalopram [Lexapro] 20 mg PO DAILY 04/12/21 [History] Esomeprazole Magnesium [NexIUM] 40 mg PO DAILY 04/12/21 [History] Meloxicam [Mobic] 15 mg PO DAILY 04/12/21 [History] Multivitamins, Thera [Multivitamin (formulary)] 1 tab PO DAILY 04/12/21 [History] Simvastatin [Zocor] 20 mg PO HS 04/12/21 [History] amLODIPine [Norvasc] 5 mg PO DAILY 04/12/21 [History] cycloSPORINE 0.05% OPHTH SOLN [Restasis] 1 drop BOTH EYES BID 04/12/21 [History] Docusate [Colace] 100 mg PO DAILY #30 capsule 04/16/21 [Rx] HYDROcodone/APAP 7.5-325MG [[place] 7.5] 1 each PO Q6HR PRN #28 tab 04/16/21 [Rx] Heparin Sodium,Porcine [Heparin Sodium] 5,000 unit SQ Q12HR #50 each 04/16/21 [Rx] polyethylene glycoL 3350 [Miralax] 17 gm PO DAILY PRN #30 packet 04/16/21 [Rx] Follow up Appointment(s)/Referral(s): KIRILL FITZGERALD [Other] - 1 Week Jay Jay Benito III, MD [Primary Care Provider] - 1-2 days Baljit Bernardo PAC [PHYSICIAN HAIR SPINNER] - 2 Weeks Activity/Diet/Wound Care/Special Instructions: Orthopedic Discharge Instructions: 1. Wound care and infection precautions, keep incision dry and covered while showering, no lotions, creams, moisturizers. No soaking, pools, hot tubs. Do not scrub over incision. 2. Weight-bear as tolerated with walker / cane until follow-up. 3. Ice and elevate when necessary. Do not exceed 20 minutes per hour with ice pack. 4. Utilize compression sleeve until seen at first follow up appointment. 5. Pain meds and anticoagulants per prescription. 6. Pain medication has potential to cause constipation. Increase oral fluid and fiber intake. Contact primary care provider if you have not had a bowel movement within 48 hours after discharge. 7. No anti-inflammatory medication until discussed at first post operative visit, this including Motrin, Aleve, Mobic, Diclofenac. 8. Follow up in office at 2 weeks postop with Kyler Bernardo PA-C/Yovani Martin PA-C 9. Follow up with your primary care doctor 7-10 days after discharge. 10. Contact [facility] with any questions, . Discharge Disposition: TRANSFER TO SNF/ECF
[2021-04-16 11:38] VITALS: BMI 33.9
--- NOTE | 2021-04-16 14:04 | PN ---
PROGRESS NOTE DATE OF SERVICE: 04/16/2021 This 76-year-old gentleman who was admitted with left intertrochanteric hip fracture and surgery is improving significantly. No chest pain. No palpitations. No fever. ECF rehab is being planned at this time. UA shows of 90 RBCs. The cultures are negative so far. PHYSICAL EXAMINATION: Alert and oriented x2. Pulse 98, blood pressure 159/71, respirations 16, temperature 97.7, pulse ox 94% on room air. HEENT: Conjunctivae normal. NECK: No jugular venous distention. CARDIOVASCULAR: S1, S2 muffled. RESPIRATION: Breath sounds diminished at the bases. No rhonchi. No crackles. ABDOMEN: Soft, nontender. NERVOUS SYSTEM: No focal deficit. LAB STUDIES: WBC 7.4, hemoglobin 10.2. ASSESSMENT: 1. Status post intertrochanteric femur fracture and status post trochanteric intramedullary nailing, right. 2. Fever, improved. 3. History of gastroesophageal reflux disease. 4. Urinary retention. 5. Hypertension. 6. Hyperlipidemia. 7. History of degenerative joint disease. 8. History of sleep apnea. 9. History of nephrolithiasis. 10.History of gout. 11.History of depression. 12.Obesity with body mass index of 33.8. 13.FULL CODE. RECOMMENDATIONS AND DISCUSSION: I recommend to continue current medications, continue with the monitoring, symptomatic treatment. Cultures are negative so far. Recommend close followup in the ECF regarding the fever cultures. Otherwise DVT prophylaxis. Closely follow with Orthopedic Surgery. Rest of the recommendations per Orthopedic Surgery. Further recommendations to follow. MMODL / IJN: [id number] / LISA
== END 2021-04-16 15:20 | DRG 481 ==
LOC: EC 15:30 → 4SSUR 17:03 → 3NCARDOBS 04-13 06:43
PROVIDERS: ADMIT Orthopaedic Surgery; ATTEND Orthopaedic Surgery
PROC: 0QS604Z Reposition Right Upper Femur with Internal Fixation Device, Open Approach (ICD-10-PCS; principal; 2021-04-13 16:30)
DX: S72.141A Displaced intertrochanteric fracture of right femur, initial encounter for closed fracture (principal); D62 Acute posthemorrhagic anemia; W00.0XXA Fall on same level due to ice and snow, initial encounter; E66.9 Obesity, unspecified; Z68.33 Body mass index [BMI] 33.0-33.9, adult; E78.5 Hyperlipidemia, unspecified; F32.A Depression, unspecified; G47.33 Obstructive sleep apnea (adult) (pediatric); I10 Essential (primary) hypertension; M10.9 Gout, unspecified; Z87.442 Personal history of urinary calculi; Z79.82 Long term (current) use of aspirin; Z79.899 Other long term (current) drug therapy; Z79.1 Long term (current) use of non-steroidal anti-inflammatories (NSAID); Z91.030 Bee allergy status
CPT/HCPCS: 36415; 71045; 71046; 73502; 80048; 80053; 81001; 85025; 85610; 85730; 86850; 86900; 86901; 87040; 87086; 87635; 93005; 99285